=== PATIENT | female | born 1970 | race Caucasian/White ===

== ENCOUNTER 2021-02-23 17:41 | Emergency (ER) | payer OTHER ==
[~2021-02-23] VITALS: Ht 170.2 cm; Wt 104.3 kg
== END 2021-02-23 18:18 | disposition home or self-care (01) ==
LOC: ER 18:00
DX: M54.50 Low back pain, unspecified (principal); M25.552 Pain in left hip; M25.551 Pain in right hip; W01.0XXA Fall on same level from slipping, tripping and stumbling without subsequent striking against object, initial encounter; Y93.01 Activity, walking, marching and hiking; Y92.512 Supermarket, store or market as the place of occurrence of the external cause; Y99.9 Unspecified external cause status
CPT/HCPCS: 99282

== ENCOUNTER → 2022-05-01 | Outpatient (CLI) | payer OTHER | LOC: RAD 13:40 | PROVIDERS: ATTEND Surgery | DX: M79.671 Pain in right foot (principal); M79.672 Pain in left foot ==